=== PATIENT | male | born 1975 | race African-American/Black ===

== ENCOUNTER 2020-08-28 12:55 | Emergency (ER) | payer OTHER, SELFPAY ==
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
[2020-08-28 13:26] VITALS: BP 167/88; PULSE 79; RESP 16; TEMP 36.9; O2SAT 99
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
== END 2020-08-28 14:41 | disposition home or self-care (01) ==
PROVIDERS: Emergency Provider Nurse Practitioner
DX: S39.012A Strain of muscle, fascia and tendon of lower back, initial encounter (principal); S16.1XXA Strain of muscle, fascia and tendon at neck level, initial encounter; V49.40XA Driver injured in collision with unspecified motor vehicles in traffic accident, initial encounter
CPT/HCPCS: 72050; 72100; 99203; G0463